=== PATIENT | female | born 2000 | race Caucasian/White ===

== ENCOUNTER 2021-03-31 15:25 | Emergency (ER) | payer MEDICAID | END 2021-03-31 19:36 | disposition left against medical advice (07) | LOC: ER 15:26 | DX: R15.9 Full incontinence of feces (principal); Z53.21 Procedure and treatment not carried out due to patient leaving prior to being seen by health care provider ==

== ENCOUNTER 2022-03-15 23:16 | Emergency (ER) | payer MEDICAID ==
[~2022-03-15] VITALS: Ht 165.1 cm; Wt 136.1 kg
[2022-03-16 02:20] VITALS: BP 145/87
== END 2022-03-16 02:21 | disposition home or self-care (01) ==
LOC: ER 23:17
DX: R07.81 Pleurodynia (principal); R05.9 Cough, unspecified
CPT/HCPCS: 71045; 93005; 99283